=== PATIENT | male | born 1975 ===

== ENCOUNTER 2021-02-11 12:41 | Emergency (ER) | payer SELFPAY ==
[~2021-02-11] VITALS: Ht 172.7 cm; Wt 95.4 kg
[~2021-02-11 12:41] MED LIST: AMOXICILLIN500 MG PO; CLEOCIN300 MG PO; HALDOL1 MG PO; LORTAB 1010 MG PO; TRAZODONE100 MG OR
[2021-02-11 13:26] LABS: HEMATOCRIT 38.1 % (39.0-50.0); HEMOGLOBIN 12.8 g/dl (14.0-18.0); IMMATURE GRANULOCYTES 0.2 % (0.0-5.0); MEAN CELL VOLUME 87.2 fL CALC (80.0-100.0); MEAN CORPUSCULAR HGB 29.3 pG CALC (26.0-32.0); MEAN CORPUSCULAR HGB CONC 33.6 g/dL CAL (32.0-36.0); NEUT# 5.89 thou/uL (1.82-7.42); RED BLOOD COUNT 4.37 mill/uL (4.70-6.10); RED CELL DISTRI WIDTH 12.8 % (11.5-15.5)
[2021-02-11 13:36] LABS: URINE BILIRUBIN - DIPSTICK NEGATIVE (NEGATIVE); URINE BLOOD DIPSTICK NEGATIVE (NEGATIVE); URINE COLOR YELLOW; URINE GLUCOSE - DIPSTICK >=1000 mg/dL (NEGATIVE); URINE KETONE 40 mg/dL (NEGATIVE); URINE LEUK ESTERASE NEGATIVE (NEGATIVE); URINE PROTEIN - DIPSTICK NEGATIVE (NEG-TRACE); URINE SPECIFIC GRAVITY <=1.005; URINE UROBILINOGEN - DIPSTICK 0.2 E.U./dL (0.2)
[2021-02-11 13:37] LABS: URINE NITRITE - DIPSTICK NEGATIVE (Negative)
[2021-02-11 13:45] LABS: ALBUMIN 3.4 g/dL (3.2-5.0); BILIRUBIN, TOTAL 0.3 mg/dL (0.0-1.4); BUN 11 mg/dL (9-20); BUN/CREATININE RATIO 16 (12-20 (CALC)); CHLORIDE 97 mmol/l (95-108); CREATININE 0.7 mg/dL (0.7-1.3); GFR > 60 ML/MIN (>=60 (CALC)); GFR FOR AFR.AMER. > 60 ML/MIN (>=60 (CALC)); POTASSIUM 4.5 mmol/l (3.5-5.1); SGOT/AST 24 u/l (17-59); TOTAL PROTEIN 6.6 g/dL (6.3-8.2)
[2021-02-11 13:52] LABS: ALKALINE PHOSPHATASE 106 u/l (38-126); ANION GAP 15 (6-22 (CALC)); CARBON DIOXIDE 21 mmol/l (22-30); SODIUM 128 mmol/l (137-146)
[2021-02-11 15:45] VITALS: BP 135/91
== END 2021-02-11 15:45 | DRG 603 ==
LOC: ED 12:41
PROVIDERS: Family Medicine
DX: L03.011 Cellulitis of right finger (principal); L03.012 Cellulitis of left finger; E11.9 Type 2 diabetes mellitus without complications; F17.200 Nicotine dependence, unspecified, uncomplicated